=== PATIENT | female | born 1965 | race American Indian/Alaskan Native ===

== ENCOUNTER 2018-08-22 08:35 | Day surgery (SDC) | payer OTHER ==
--- NOTE | 2018-08-22 08:48 | PDOC ---
History of Present Illness - General Chief Complaint: Revisit,Radiology Variance Stated Complaint: ABSCESS Time Seen by Provider: 08/22/18 08:47 History Source: Patient Exam Limitations: No Limitations - History of Present Illness Initial Comments: 08/22/18 09:08 53 year old female with history of perianal abscesses sent to ED by Dr. Mandujano for perirectal abscess since 08/19. She stated she finished 7 days of augmentin and steroids 08/19/18 for a cough. She admitted to subjective fever last week, but no fever in the last couple of days. She denied abdominal pain, vomiting, chest pain, shortness of breath, lightheadedness. Past History - Past Medical History Allergies/Adverse Reactions: Allergies Allergy/AdvReac Type Severity Reaction Status Date / Time morphine Allergy Verified 08/22/18 08:37 Home Medications: Ambulatory Orders Levofloxacin [Levaquin] 500 mg PO DAILY 10 Days #10 tablet 08/22/18 Tramadol HCl 50 mg PO BID 5 Days #10 tablet MDD 2 08/22/18 COPD: No - Immunization History Immunization Up to Date: Yes - Suicide/Smoking/Psychosocial Hx Smoking History: Never smoked Hx Alcohol Use: No Review of Systems - Review of Systems Able to Perform ROS?: Yes Comments:: 08/22/18 09:16 General: denied fever, chills, night sweats, generalized weakness. HEENT: denied sore throat, rhinorrhea, ear pain. Heart: denied chest pain, palpitations, syncope, lower extremity swelling, diaphoresis. Respiratory: denied shortness of breath, cough, sputum production, hemoptysis. Abdomen: denied abdominal pain, nausea, vomiting, diarrhea, constipation, blood in stool. : denied dysuria, increased urinary frequency, hematuria, urinary incontinence , flank pain. Back: denied back pain. Musculoskeletal: denied joint pain, muscle pain, joint swelling. Neurological: denied headache, dizziness, numbness, tingling, weakness. Skin: admitted to abscess. *Physical Exam - Vital Signs Last Vital Signs Temp Pulse Resp BP Pulse Ox 97.9 F 69 18 146/70 98 08/22/18 08:37 08/22/18 08:37 08/22/18 08:37 08/22/18 08:37 08/22/18 08:37 - Physical Exam Comments: 08/22/18 09:17 Constitutional: Well-nourished, Well-developed, appearing stated age. HEENT: head is normocephalic, atraumatic. EOMI. PERRLA. Neck: supple. Full ROM. Heart: regular rhythm. no murmurs, rubs or gallops. Lungs: clear to auscultation bilaterally. no crackles, rhonchi or wheezing. no stridor. Abdomen: soft, nontender. normal bowel sounds. no rebound, guarding, masses. Extremities: Peripheral pulses intact. No lower extremity edema. Neurological: CN 2-12 grossly intact. Moves all four extremities. Psych: awake, alert, oriented x3. Follows commands. Answers questions appropriately. Skin: 2x2 cm area of induration, no erythema, no cellulitis, no flucutance to left buttocks. Moderate Sedation - Procedure Monitoring Vital Signs: Procedure Monitoring Vital Signs Temperature 97.9 F 08/22/18 08:37 Pulse Rate 69 08/22/18 08:37 Respiratory Rate 18 08/22/18 08:37 Blood Pressure 146/70 08/22/18 08:37 O2 Sat by Pulse Oximetry (%) 98 08/22/18 08:37 ED Treatment Course - LABORATORY CBC & Chemistry Diagram: 08/22/18 09:20 08/22/18 09:20 Medical Decision Making - Medical Decision Making 08/22/18 09:18 53 year old female with PMH perianal abscess presented to ED for perianal abscess. Initial Vital Signs Temp Pulse Resp BP Pulse Ox 97.9 F 69 18 146/70 98 08/22/18 08:37 08/22/18 08:37 08/22/18 08:37 08/22/18 08:37 08/22/18 08:37 Afebrile. No tachycardia. No tachypnea. Mild hypertension. No hypoxia on room air. Pending labs, CXR, EKG. Bedside US showed 1.36x0.76 cm hypodense area consistent with abscess. 08/22/18 10:43 CBC WBC 11.3 K/mm3 (4.0-10.0) H 08/22/18 09:20 RBC 4.87 M/mm3 (3.60-5.2) 08/22/18 09:20 Hgb 13.6 GM/dL (10.7-15.3) 08/22/18 09:20 Hct 41.9 % (32.4-45.2) D 08/22/18 09:20 MCV 86.1 fl (80-96) 08/22/18 09:20 MCH 27.8 pg (25.7-33.7) 08/22/18 09:20 MCHC 32.3 g/dl (32.0-36.0) 08/22/18 09:20 RDW 13.1 % (11.6-15.6) 08/22/18 09:20 Plt Count 343 K/MM3 (134-434) 08/22/18 09:20 MPV 7.9 fl (7.5-11.1) 08/22/18 09:20 Absolute Neuts (auto) 7.6 K/mm3 (1.5-8.0) 08/22/18 09:20 Neutrophils % 67.2 % (42.8-82.8) 08/22/18 09:20 Lymphocytes % 24.7 % (8-40) 08/22/18 09:20 Monocytes % 6.3 % (3.8-10.2) 08/22/18 09:20 Eosinophils % 1.3 % (0-4.5) 08/22/18 09:20 Basophils % 0.5 % (0-2.0) 08/22/18 09:20 Nucleated RBC % 0 % (0-0) 08/22/18 09:20 Mild leukocytosis. No left shift. No anemia. CMP Sodium 139 mmol/L (136-145) 08/22/18 09:20 Potassium 3.9 mmol/L (3.5-5.1) 08/22/18 09:20 Chloride 103 mmol/L (98-107) 08/22/18 09:20 Carbon Dioxide 26 mmol/L (21-32) 08/22/18 09:20 Anion Gap 10 MMOL/L (8-16) 08/22/18 09:20 BUN 12 mg/dL (7-18) 08/22/18 09:20 Creatinine 0.7 mg/dL (0.55-1.3) 08/22/18 09:20 Creat Clearance w eGFR > 60 (>60) 08/22/18 09:20 Random Glucose 98 mg/dL (74-106) 08/22/18 09:20 Lactic Acid 1.3 mmol/L (0.4-2.0) 08/22/18 09:20 Calcium 8.3 mg/dL (8.5-10.1) L 08/22/18 09:20 Total Bilirubin 0.8 mg/dL (0.2-1) 08/22/18 09:20 AST 18 U/L (15-37) 08/22/18 09:20 ALT 56 U/L (13-61) 08/22/18 09:20 Alkaline Phosphatase 90 U/L (45-117) 08/22/18 09:20 Total Protein 7.6 g/dl (6.4-8.2) 08/22/18 09:20 Albumin 3.6 g/dl (3.4-5.0) 08/22/18 09:20 Beta HCG, Quant < 1.0 mIU/ml 08/22/18 09:20 No electrolyte abnormalities. No JEIMY. No lactic acidosis. No transaminitis. Serum testing negative. INR, PTT INR 0.97 (0.83-1.09) 08/22/18 09:20 CXR: no acute pathology. EKG: rate 63, regular rhythm, normal intervals, normal axis, no acute ST changes. Pt to be admitted for abscess. Vancomycin and Unasyn ordered. 08/22/18 14:03 CT pelvis with IV contrast report: 1.8x1.0x1.4cm left perianal abscess. fibroid uterus. *DC/Admit/Observation/Transfer Diagnosis at time of Disposition: Abscess - Discharge Dispostion Condition at time of disposition: Stable Decision to Admit order: Yes - Prescriptions - Referrals - Patient Instructions - Post Discharge Activity
[2018-08-22 09:34] LABS: BASO % 0.5 % (0-2.0); EOS % 1.3 % (0-4.5); HEMATOCRIT 41.9 % (32.4-45.2); HEMOGLOBIN 13.6 GM/dL (10.7-15.3); LYMPH % 24.7 % (8-40); MCH 27.8 pg (25.7-33.7); MCHC 32.3 g/dl (32.0-36.0); MEAN CELL VOLUME 86.1 fl (80-96); MEAN PLT VOLUME 7.9 fl (7.5-11.1); MONO % 6.3 % (3.8-10.2); NEUT % 67.2 % (42.8-82.8); PLATELET COUNT 343 K/MM3 (134-434); RBC 4.87 M/mm3 (3.60-5.2); RDW 13.1 % (11.6-15.6); WHITE BLOOD COUNT 11.3 K/mm3 (4.0-10.0)
[2018-08-22 09:51] LABS: INR 0.97 (0.83-1.09); PROTHROMBIN TIME (PATIENT) 11.4 SEC (9.7-13.0)
[2018-08-22 09:53] LABS: ACTIVATED PTT 30.2 SECONDS (25.2-36.5)
[2018-08-22 10:14] LABS: ALBUMIN 3.6 g/dl (3.4-5.0); ALK PHOS 90 U/L (45-117); ANION GAP 10 MMOL/L (8-16); BILIRUBIN,TOTAL 0.8 mg/dL (0.2-1); BLOOD UREA NITROGEN 12 mg/dL (7-18); CALCIUM 8.3 mg/dL (8.5-10.1); CHLORIDE 103 mmol/L (98-107); CO2 26 mmol/L (21-32); CREATININE 0.7 mg/dL (0.55-1.3); GLUCOSE,RANDOM 98 mg/dL (74-106); POTASSIUM 3.9 mmol/L (3.5-5.1); SGOT/AST 18 U/L (15-37); SGPT/ALT 56 U/L (13-61); SODIUM 139 mmol/L (136-145); TOT PROT 7.6 g/dl (6.4-8.2)
--- NOTE | 2018-08-22 10:46 | PDOC ---
Attending Attestation - Resident Resident Name: Cielo Hutchinson - ED Attending Attestation I have performed the following: I have examined & evaluated the patient, The case was reviewed & discussed with the resident, I agree w/resident's findings & plan - HPI HPI: 08/22/18 10:45 53-year-old female sent by Dr. Mandujano for further management of left perianal abscess. No fevers or chills. - Physicial Exam PE: 08/22/18 10:45 Afebrile and hemodynamically stable Deep tissue abscess palpable along the left gluteal cleft, no active drainage or bleeding - Medical Decision Making 08/22/18 10:46 53-year-old female sent for operative drainage of perianal abscess, no evidence of seizures or sepsis. Labs CT of the pelvis Dr. Mandujano consulted, admitted to Dr. Mckeon Heart Score/ECG Review #1 General ECG Interpretation: Sinus Rhythm, Normal Rate, Normal Intervals, No acute ischemic changes
[2018-08-22] MEDS ORDERED: VANCOMYCIN 1,000 MG in DEXTROSE 5%-WATER - 250 ML IVPB ONE (10:50)
[2018-08-22] MEDS ORDERED: AMPICILLIN NA/SULBACTAM NA 3 GM in SODIUM CHLORIDE 100 ML IVPB ONE (10:53)
[2018-08-22] MEDS ORDERED: LIDOCAINE HCL 2% (50ML VIAL) SQ ONE (13:12)
--- NOTE | 2018-08-22 13:12 | HP ---
Satellite [facility] - Chief Complaint History Source: Patient Limitations to Obtaining History: No Limitations - Past Medical History Allergies/Adverse Reactions: Allergies Allergy/AdvReac Type Severity Reaction Status Date / Time morphine Allergy Verified 08/22/18 08:37 Heme/Onc: Yes: Anemia Additional Medical History: S/P excision of pilonidal cyst. - Current Medications Current Medications: Home Medications Medication Instructions Recorded NK [No Known Home Medication] 08/31/16 Satellite Physical Exam - Physical Examination Vital Signs: Vital Signs Period Temp Pulse Resp BP Sys/Vivas Pulse Ox Last 24 Hr 97.9 F 69 18-18 146/70 98-100 General Appearance: Well Nourished ENT: Clear Heart: Regular rate & rhythm Breasts: Soft Abdomen: Soft, Other (Tender in left side of anus, with some redness. CT scan reviewed with radiologist , small less than 2 cm superficial abscess in left perianal area.) Satellite Impression/Plan - Impression/Plan Impression: Small , less than 2 cm. perianal abscess, 10 days old, she has been on antibiotics. Plan : Inciaion and drainage of perianal abscess. Patient is informed , consent obtained, procedure of aspiration with lidocaine infiltartion explained. Date to be Performed: 08/22/18
[2018-08-22] MEDS ORDERED: LIDOCAINE HCL 1%, 10 MG/ML (20ML VIAL) ONE (13:20)
--- NOTE | 2018-08-22 13:44 | PROC ---
Procedure Note Procedure: Aspiration of perianal abscess, on left side. Procedure description , 53 year old woman , who has had perirectal pain for 2 weeks, and has been on augmentin for 10 days. She had focal pain on the left perianal area of the skin , with some redness. a Ct scan done this a.m. showed a small , less renae 2 cm, perianal abscess, under the skin. Patient was informed, consent was obtained , for aspiration of the abscess, under local anesthesia. The perianal area was cleansed with betadine. 5ml of 1% lidocaine was injected around the area of induration and exquiste tenderness. With a no. 18 gauge needle , aspiration of less than 2 ml of pus was aspirated. Pus was sent for culture and antibiotic sensitivity. Shw will be sent home with prescription for levaquine, and followed in my office. Tolerated the procedure well.
[2018-08-22] MEDS ORDERED: LIDOCAINE HCL 2% (20ML MULTI-DOSE VIAL) NR ONE (13:45)
[2018-08-22 14:14] VITALS: BP 153/84; PULSE 76; TEMP 97.8; BMI 27.6
--- NOTE | 2018-08-23 12:45 | EKG ---
Test Reason : Blood Pressure : / mmHG Vent. Rate : 063 BPM Atrial Rate : 063 BPM P-R Int : 180 ms QRS Dur : 096 ms QT Int : 456 ms P-R-T Axes : 040 038 021 degrees QTc Int : 466 ms POOR DATA QUALITY, INTERPRETATION MAY BE ADVERSELY AFFECTED NORMAL SINUS RHYTHM NORMAL ECG WHEN COMPARED WITH ECG OF 31-AUG-2016 20:16, NO SIGNIFICANT CHANGE WAS FOUND Confirmed by JAIME COKER, SEFERINO ([id number]) on 08/23/2018 12:45:24 PM Referred By: Confirmed By:SEFERINO SANDOVAL MD
== END 2018-08-22 15:44 | disposition home or self-care (01) ==
LOC: JER 08:35 → UNDOADMIN 10:49 → JASUSAT 10:49 → JERBED 10:49 → J7W 12:51 → JASUSAT 15:44
PROVIDERS: ATTEND Specialist
PROC: 0D9QXZX Drainage of Anus, External Approach, Diagnostic (ICD-10-PCS; principal; 2018-08-22)
DX: K61.0 Anal abscess (principal)
CPT/HCPCS: 36415; 71046-TC-FY; 72193-TC; 80053; 83605; 84702; 85025; 85610; 85730; 86850; 86900; 86901; 87040; 87070; 87186; 87205; 93005; 93010; 99283-25

== ENCOUNTER 2018-08-24 18:13 | Emergency (ER) | payer OTHER ==
[2018-08-24 18:58] VITALS: BP 171/71; PULSE 82; TEMP 98.2; BMI 27.6
[2018-08-24] MEDS ORDERED: LIDOCAINE HCL 1%, 10 MG/ML (20ML VIAL) ONE (19:03)
[2018-08-24] MEDS ORDERED: ACETAMINOPHEN 325 MG TABLET (FP) ONE (19:22)
[2018-08-24] MEDS ORDERED: ACETAMINOPHEN 325 MG TABLET (FP) PO ONE (19:27)
--- NOTE | 2018-08-24 19:35 | PDOC ---
History of Present Illness <Khalif Rivera - Last Filed: 08/24/18 19:31> - History of Present Illness Initial Comments: 08/24/18 19:36 The patient is a 53 year old female with a significant PMH of left perianal abscess who presents to the emergency department with worsening pain to the left perianal s/p incision and drainage two days ago. Patient was started on levaquin two days ago. Patient has follow up with Dr. Mandujano. Patient denies any fever or chills. Allergies: NKA Past surgical history: none reported. Social history: No reported alcohol, drug or cigarette use. <Marii Hurst - Last Filed: 08/24/18 19:39> - General Chief Complaint: Abscess Boil Stated Complaint: PAIN Time Seen by Provider: 08/24/18 19:26 Past History - Past Medical History COPD: No - Immunization History Immunization Up to Date: Yes - Suicide/Smoking/Psychosocial Hx Smoking History: Never smoked Have you smoked in the past 12 months: No Information on smoking cessation initiated: No Hx Alcohol Use: No Drug/Substance Use Hx: No <Khalif Rivera - Last Filed: 08/24/18 19:31> <Marii Hurst - Last Filed: 08/24/18 19:39> - Past Medical History Allergies/Adverse Reactions: Allergies Allergy/AdvReac Type Severity Reaction Status Date / Time morphine Allergy Verified 08/24/18 18:56 Home Medications: Ambulatory Orders Levofloxacin [Levaquin] 500 mg PO DAILY 10 Days #10 tablet 08/22/18 Tramadol HCl 50 mg PO BID 5 Days #10 tablet MDD 2 08/22/18 Review of Systems - Review of Systems Constitutional: No: Chills, Diaphoresis, Fever, Night Sweats ABD/GI: No: Diarrhea, Vomiting Integumentary: Yes: See HPI Neurological: No: Headache <Khalif Rivera - Last Filed: 08/24/18 19:31> - Review of Systems Able to Perform ROS?: Yes Comments:: 08/24/18 19:38 ADULT ROS GENERAL/CONSTITUTIONAL: No fever or chills. No weakness. HEAD, EYES, EARS, NOSE AND THROAT: No change in vision. No ear pain or discharge. No sore throat. CARDIOVASCULAR: No chest pain or shortness of breath. RESPIRATORY: No cough, wheezing, or hemoptysis. GASTROINTESTINAL: No nausea, vomiting, diarrhea or constipation. GENITOURINARY: No dysuria, frequency, or change in urination. MUSCULOSKELETAL: No joint or muscle swelling or pain. No neck or back pain. SKIN: (+) persistent pain to left perianal abscess s/p I&D NEUROLOGIC: No headache, vertigo, loss of consciousness, or change in strength/ sensation. ENDOCRINE: No increased thirst. No abnormal weight change. HEMATOLOGIC/LYMPHATIC: No anemia, easy bleeding, or history of blood clots. ALLERGIC/IMMUNOLOGIC: No hives or skin allergy. <Marii Hurst - Last Filed: 08/24/18 19:39> *Physical Exam - Vital Signs Last Vital Signs Temp Pulse Resp BP Pulse Ox 98.2 F 82 20 171/71 H 99 08/24/18 18:56 08/24/18 18:56 08/24/18 18:56 08/24/18 18:56 08/24/18 18:56 <Khalif Rivera - Last Filed: 08/24/18 19:31> - Vital Signs Last Vital Signs Temp Pulse Resp BP Pulse Ox 98.2 F 82 20 171/71 H 99 08/24/18 18:56 18 18:56 18 18:56 08/24/18 18:56 08/24/18 18:56 - Physical Exam Comments: 08/24/18 19:37 GENERAL: The patient is awake, alert, and fully oriented, in no acute distress. HEAD:[Normal with no signs of trauma. EYES: Pupils equal, round and reactive to light, extraocular movements intact, sclera anicteric, conjunctiva clear. EXTREMITIES: Normal range of motion, no edema. NEUROLOGICAL: Normal speech, normal gait. PSYCH: Normal mood, normal affect. SKIN: Warm, Dry, normal turgor. (+) bandage in place s/p left perianal abscess I &D by Dr. Mandujano <Marii Hurst - Last Filed: 08/24/18 19:39> Moderate Sedation - Procedure Monitoring Vital Signs: Procedure Monitoring Vital Signs Temperature 98.2 F 08/24/18 18:56 Pulse Rate 82 08/24/18 18:56 Respiratory Rate 20 08/24/18 18:56 Blood Pressure 171/71 H 08/24/18 18:56 O2 Sat by Pulse Oximetry (%) 99 08/24/18 18:56 <Khalif Rivera - Last Filed: 08/24/18 19:31> - Procedure Monitoring Vital Signs: Procedure Monitoring Vital Signs Temperature 98.2 F 08/24/18 18:56 Pulse Rate 82 08/24/18 18:56 Respiratory Rate 20 08/24/18 18:56 Blood Pressure 171/71 H 08/24/18 18:56 O2 Sat by Pulse Oximetry (%) 99 08/24/18 18:56 <Marii Hurst - Last Filed: 08/24/18 19:39> ED Treatment Course - Medications Given in the ED: ED Medications Discontinued Medications Generic Name Dose Route Start Last Admin Trade Name Freq PRN Reason Stop Dose Admin Acetaminophen 650 mg 08/24/18 19:27 08/24/18 19:27 Tylenol - PO 08/24/18 19:28 650 mg NOW ONE Administration <Khalif Rivera - Last Filed: 08/24/18 19:31> - Medications Given in the ED: ED Medications Discontinued Medications Generic Name Dose Route Start Last Admin Trade Name Freq PRN Reason Stop Dose Admin Acetaminophen 650 mg 08/24/18 19:27 08/24/18 19:27 Tylenol - PO 08/24/18 19:28 650 mg NOW ONE Administration <Guillermina Hurstsy - Last Filed: 08/24/18 19:39> Medical Decision Making - Medical Decision Making 08/24/18 19:32 53-year-old female presents again to the emergency department with persistent pain to left perianal abscess status post incision and drainage 2 days ago with general surgery, CAT scan at that time showed tiny amount of fluid which was drained, now presents with persistent pain but no systemic symptoms of fevers or chills area taking antibiotics, seen by Dr. Madnujano in the emergency department and incision again performed without any pus, plan is to discharge continuing antibiotics and follow-up in the office. Patient with postprocedural discomfort otherwise well-appearing Afebrile Bandage in place status post intervention by Dr. Mandujano Abdomen benign 53-year-old female with persistent buttock cellulitis/induration, status post incision and drainage, on antibiotics. Seen again by surgery in the emergency department, plan is to continue antibiotics, no further intervention needed at this time. No systemic symptoms to suggest bacteremia or sepsis. Patient has antibiotics at home Ibuprofen and Tylenol as needed for pain Has follow-up in the office, otherwise can return to the emergency department, understands return criteria <Khalif Rivera - Last Filed: 08/24/18 19:31> *DC/Admit/Observation/Transfer <Khalif Rivera - Last Filed: 08/24/18 19:31> - Attestations Scribe Attestion: 08/24/18 19:38 Documentation prepared by Marii Hurst, acting as diagnostic medical sonographer for Khalif Rivera MD. <Marii Hurst - Last Filed: 08/24/18 19:39> Diagnosis at time of Disposition: Abscess - Discharge Dispostion Disposition: HOME Condition at time of disposition: Stable - Referrals Referrals: Nimesh Mandujano MD [Staff Physician] - - Patient Instructions Printed Discharge Instructions: DI for Incision and Drainage of a Skin Abscess Additional Instructions: Activity as tolerated. Stay hydrated. Tylenol 1000 mg every 8 hours and/or ibuprofen 600 mg every 8 hours as needed for pain. Tramadol as previously prescribed as needed for severe pain. Continue your medications as previously prescribed by your physician, including the Levaquin (an antibiotic for the infection). You should follow up with Dr. Mandujano as soon as possible regarding today's emergency department visit. Return to the emergency department for any new or concerning symptoms, particularly persistent or intolerable pain, fever/chills, excessive pus or blood, expanding redness/swelling/discoloration. - Post Discharge Activity Forms/Work/School Notes: Back to Work
--- NOTE | 2018-08-24 19:36 | PROC ---
Procedure Note Procedure: Incision and drainage of perianal abscess. Under sterile aseptic condition , the area baround the anus was cleansed with betadine. 1% lidocaine was injected intothe skin over the area of maximum tenderness, and induration. Lidocaine was also injected deep into the perianal skin on either side of the area of induration. With a no. 15 blade a crisscross incision was made over the area of induration. A clamp was introduced , and the area opened. No pus was seen , there was no foul smell. The wound was packed loosely with 2 inch gauze. A dressing was placed. Patient was informed. Continue antibiotics, sitz bath, Will follow.
--- NOTE | 2018-08-24 19:42 | CONSULT ---
Consult Consult Specialty:: Surgery - History of Present Illness Chief Complaint: Perianal abscess. - History Source History Provided By: Patient Limitations to Obtaining History: No Limitations - Past Medical History Additional Medical History: S/P excision of pilonidal cyst. - Past Surgical History Past Surgical History: Yes: (x 3) - Alcohol/Substance Use Hx Alcohol Use: No History of Substance Use: reports: None - Smoking History Smoking history: Never smoked Have you smoked in the past 12 months: No - Social History ADL: Independent Occupation: QUALITY ASSISTANT Home Medications - Allergies Allergies/Adverse Reactions: Allergies Allergy/AdvReac Type Severity Reaction Status Date / Time morphine Allergy Verified 08/24/18 18:56 - Home Medications Home Medications: Ambulatory Orders Levofloxacin [Levaquin] 500 mg PO DAILY 10 Days #10 tablet 08/22/18 Tramadol HCl 50 mg PO BID 5 Days #10 tablet MDD 2 08/22/18 Physical Exam Vital Signs: Vital Signs Temperature 98.2 F 08/24/18 18:56 Pulse Rate 82 08/24/18 18:56 Respiratory Rate 20 08/24/18 18:56 Blood Pressure 171/71 H 08/24/18 18:56 O2 Sat by Pulse Oximetry (%) 99 08/24/18 18:56 ...Rectal Exam: Yes: Other (Induration on the nskin on the left perianal / buttock area, suggestive of infection. S/P aspiratoion of pus 2 days ago.) Assessment/Plan Perianal abscess, on the left side, s/p aspiration . Still c/o persistent pain . R.o residual abscess, undrained. patient is informed and advised incision and drainage. she has agreed , Procedure done. Continue antibiotics, sitzbath , pain medication. Follow up.
== END 2018-08-24 19:40 | disposition home or self-care (01) ==
LOC: JER 18:13
PROC: 0D9Q0ZZ Drainage of Anus, Open Approach (ICD-10-PCS; principal; 2018-08-24)
DX: K61.0 Anal abscess (principal)
CPT/HCPCS: 99281-25

== ENCOUNTER 2019-02-07 10:50 | Emergency (ER) | payer OTHER ==
[2019-02-07 11:02] VITALS: BP 139/77; PULSE 75; TEMP 98.5; BMI 27.1
--- NOTE | 2019-02-07 11:02 | PDOC ---
Rapid Medical Evaluation Chief Complaint: Back Pain Time Seen by Provider: 02/07/19 10:57 Medical Evaluation: Allergies Allergy/AdvReac Type Severity Reaction Status Date / Time morphine Allergy Verified 08/24/18 18:56 02/07/19 10:58 I have performed a brief in-person evaluation of this patient. The patient presents with a chief complaint of: L flank pain x 3 days, pinching pain, radiating to mid back, denies trauma/injury - pt states she is seen by Dr. 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
[2019-02-07 12:01] LABS: BASO % 0.4 % (0-2.0); EOS % 1.1 % (0-4.5); HEMOGLOBIN 12.7 GM/dL (10.7-15.3); LYMPH % 28.5 % (8-40); MCH 28.1 pg (25.7-33.7); MCHC 32.6 g/dl (32.0-36.0); MEAN CELL VOLUME 86.2 fl (80-96); MEAN PLT VOLUME 8.4 fl (7.5-11.1); MONO % 7.3 % (3.8-10.2); NEUT % 62.7 % (42.8-82.8); PLATELET COUNT 315 K/MM3 (134-434); RBC 4.53 M/mm3 (3.60-5.2); RDW 12.8 % (11.6-15.6); WHITE BLOOD COUNT 8.1 K/mm3 (4.0-10.0)
[2019-02-07] MEDS ORDERED: KETOROLAC TROMETHAMINE 60 MG/2 ML VIAL IM ONE (12:34)
--- NOTE | 2019-02-07 12:38 | PDOC ---
*Physical Exam - Vital Signs Last Vital Signs Temp Pulse Resp BP Pulse Ox 98.5 F 75 16 139/77 99 02/07/19 10:58 02/07/19 10:58 02/07/19 10:58 02/07/19 10:58 02/07/19 10:58 - Physical Exam Comments: 02/07/19 12:37 The patient was examined by [PATO Newberry] under my direct supervision. I personally evaluated the patient. I concur with the above findings and the plan of care. ED Treatment Course - LABORATORY CBC & Chemistry Diagram: 02/07/19 11:54 - ADDITIONAL ORDERS Additional order review: 02/07/19 11:54 RBC 4.53 MCV 86.2 MCHC 32.6 RDW 12.8 MPV 8.4 Neutrophils % 62.7 Lymphocytes % 28.5 Monocytes % 7.3 Eosinophils % 1.1 Basophils % 0.4
--- NOTE | 2019-02-07 13:00 | PDOC ---
History of Present Illness - General Chief Complaint: Back Pain Stated Complaint: LWR BACK PAIN Time Seen by Provider: 02/07/19 10:57 History Source: Patient Exam Limitations: Clinical Condition - History of Present Illness Initial Comments: 02/07/19 12:54 Patient with history of anal fistula being followed by Dr. Mandujano who present with 3 day history of left flank pain which is worse with movement. Patient reports sudden onset of left flank pain radiating to left thigh area. Patient reported taking tramadol for pain with no improvement. Patient denies united frequency, dysuria, burning with urination or hematuria. Patient denies nausea, vomiting. Denies any other symptoms Timing/Duration: other (3 days) Past History - Past Medical History Allergies/Adverse Reactions: Allergies Allergy/AdvReac Type Severity Reaction Status Date / Time morphine Allergy Verified 08/24/18 18:56 Home Medications: Ambulatory Orders Levofloxacin [Levaquin] 500 mg PO DAILY 10 Days #10 tablet 08/22/18 Tramadol HCl 50 mg PO BID 5 Days #10 tablet MDD 2 08/22/18 Ketorolac Tromethamine [Toradol -] 10 mg PO TID PRN #21 tablet 02/07/19 Methocarbamol [Robaxin -] 500 mg PO TID #21 tablet 02/07/19 COPD: No - Immunization History Immunization Up to Date: Yes - Suicide/Smoking/Psychosocial Hx Smoking History: Never smoked Have you smoked in the past 12 months: No Information on smoking cessation initiated: No Hx Alcohol Use: No Drug/Substance Use Hx: No Review of Systems - Review of Systems Able to Perform ROS?: Yes Is the patient limited Bengali proficient: No Constitutional: No: Malaise, Weakness HEENTM: No: Symptoms Reported Respiratory: No: Symptoms reported Cardiac (ROS): No: Symptoms Reported ABD/GI: No: Nausea, Vomiting : Yes: Symptoms Reported, See HPI, Flank Pain (left). No: Burning, Dysuria, Discharge, Frequency, Urgency Musculoskeletal: Yes: See HPI, Muscle Pain (left flank pain) All Other Systems: Reviewed and Negative *Physical Exam - Vital Signs Last Vital Signs Temp Pulse Resp BP Pulse Ox 98.5 F 75 16 139/77 99 02/07/19 10:58 02/07/19 10:58 02/07/19 10:58 02/07/19 10:58 02/07/19 10:58 - Physical Exam Comments: 02/07/19 12:58 GENERAL: Well developed, well nourished. Awake and alert. No acute distress. NECK: Supple. Full ROM. CARDIOVASCULAR: Regular rate and rhythm. No murmurs, rubs, or gallops. Distal pulses are 2+ and symmetric. PULMONARY: No evidence of respiratory distress. Lungs clear to auscultation bilaterally. No wheezing, rales or rhonchi. ABDOMINAL: Soft. moderate TTP over left flank area. Non-distended. No rebound or guarding. No organomegaly. Normoactive bowel sounds. MUSCULOSKELETAL Normal range of motion at all joints. SKIN: Warm and dry. Normal capillary refill. No rashes. No jaundice. NEUROLOGICAL: Alert, awake, appropriate. Gait is normal without ataxia. PSYCHIATRIC: Cooperative. Good eye contact. Appropriate mood General Appearance: Yes: Nourished, Appropriately Dressed, Mild Distress ED Treatment Course - LABORATORY CBC & Chemistry Diagram: 02/07/19 11:54 - ADDITIONAL ORDERS Additional order review: 02/07/19 11:54 RBC 4.53 MCV 86.2 MCHC 32.6 RDW 12.8 MPV 8.4 Neutrophils % 62.7 Lymphocytes % 28.5 Monocytes % 7.3 Eosinophils % 1.1 Basophils % 0.4 Medical Decision Making - Medical Decision Making 02/07/19 12:56 Patient with history of anal fistula being followed by Dr. Mandujano who present with 3 day history of left flank pain which is worse with movement. Patient reports sudden onset of left flank pain radiating to left thigh area. Patient reported taking tramadol for pain with no improvement. Patient denies united frequency, dysuria, burning with urination or hematuria. Patient denies nausea, vomiting. Denies any other symptoms Exam significant for moderate tenderness to left flank area which is worse with external rotation of the hip to the right. Negative CVA tenderness bilateral. Otherwise normal exam. Symptoms likely muscle strain versus kidney stone versus UTI. UA, urine culture and urine hCG lab ordered. Toradol 60 mg IM ordered for pain. Spiral CT to be ordered after negative test to rule out kidney stone. Reassess after imaging labs 02/07/19 15:43 CBC ,CMP labs wnl. UA with no significant findings. spiral CT with no acute findings. Patient symptoms likely muscle strain and stable for discharge on PO Toradol and robaxin prn for pain with orthopedics follow-up prn 02/07/19 15:53 *DC/Admit/Observation/Transfer Diagnosis at time of Disposition: Lumbago Qualifiers: Chronicity: acute Back pain laterality: left Sciatica presence: without sciatica Qualified Code(s): M54.5 - Low back pain Strain of back Qualifiers: Encounter type: initial encounter Qualified Code(s): S39.012A - Strain of muscle, fascia and tendon of lower back, initial encounter - Discharge Dispostion Disposition: HOME Condition at time of disposition: Stable Decision to Admit order: No - Prescriptions Prescriptions: Ketorolac Tromethamine [Toradol -] 10 mg PO TID PRN #21 tablet PRN Reason: Back Pain Methocarbamol [Robaxin -] 500 mg PO TID #21 tablet - Referrals Referrals: Brandon Perez DO [Staff Physician] - - Patient Instructions Printed Discharge Instructions: DI for Low Back Pain Additional Instructions: Your labs and CAT scan was normal. Your symptoms is likely from muscle strain. Take prescribed medication as needed for pain. Apply heat therapy as needed for back pain. Follow-up with referred orthopedics if no improvement in 3 days - Post Discharge Activity Forms/Work/School Notes: Back to Work
[2019-02-07 13:14] LABS: PH,URINE 6.5 (5.0-8.0); URINE APPEARANCE CLEAR; URINE BILIRUBIN NEGATIVE (NEGATIVE); URINE COLOR YELLOW; URINE GLUCOSE (UA) NEGATIVE (NEGATIVE); URINE KETONE NEGATIVE (NEGATIVE); URINE LEUK ESTERASE NEGATIVE (NEGATIVE); URINE NITRITE NEGATIVE (NEGATIVE); URINE PROTEIN NEGATIVE (NEGATIVE); URINE UROBILINOGEN 0.2 mg/dL (0.2-1.0)
[2019-02-07] MEDS ORDERED: KETOROLAC TROMETHAMINE 60 MG/2 ML VIAL ONE (13:15)
== END 2019-02-07 15:54 | disposition home or self-care (01) ==
LOC: JER 10:50
PROC: 3E0233Z Introduction of Anti-inflammatory into Muscle, Percutaneous Approach (ICD-10-PCS; principal; 2019-02-07)
DX: M54.5 Low back pain (principal); S39.012A Strain of muscle, fascia and tendon of lower back, initial encounter
CPT/HCPCS: 36415; 74176-TC; 81003; 84703; 85025; 87086; 99282-25

== ENCOUNTER 2020-08-06 05:36 | Day surgery (SDC) | payer OTHER ==
[2020-08-04 16:10] VITALS: BMI 29.3
[2020-08-06 09:48] VITALS: TEMP 97.3
[2020-08-06 11:25] VITALS: BP 123/67; PULSE 63
== END 2020-08-06 11:13 | disposition home or self-care (01) ==
LOC: JASU-ENDO 05:36
PROVIDERS: ATTEND Internal Medicine Gastroenterology
PROC: 0DB98ZX Excision of Duodenum, Via Natural or Artificial Opening Endoscopic, Diagnostic (ICD-10-PCS; 2020-08-06)
PROC: 0DB68ZX Excision of Stomach, Via Natural or Artificial Opening Endoscopic, Diagnostic (ICD-10-PCS; 2020-08-06)
PROC: 0DB48ZX Excision of Esophagogastric Junction, Via Natural or Artificial Opening Endoscopic, Diagnostic (ICD-10-PCS; 2020-08-06)
PROC: 0DJD8ZZ Inspection of Lower Intestinal Tract, Via Natural or Artificial Opening Endoscopic (ICD-10-PCS; principal; 2020-08-06 09:00)
DX: Z12.11 Encounter for screening for malignant neoplasm of colon (principal); K64.8 Other hemorrhoids; K21.00 Gastro-esophageal reflux disease with esophagitis, without bleeding; K44.9 Diaphragmatic hernia without obstruction or gangrene; K29.50 Unspecified chronic gastritis without bleeding; K29.80 Duodenitis without bleeding
CPT/HCPCS: 43239; G0121; 81025; 88305-TC; 88342-TC

== ENCOUNTER 2022-06-17 14:03 | Emergency (ER) | payer OTHER ==
[2022-06-17 14:20] VITALS: BP 147/76; PULSE 76; RESP 18; TEMP 98; BMI 29.2
[2022-06-17] MEDS ORDERED: METHOCARBAMOL 500 MG TABLET PO ONE (15:29)
[2022-06-17] MEDS ORDERED: KETOROLAC TROMETHAMINE 30 MG/1 ML VIAL IM ONE (15:29)
[2022-06-17] MEDS ORDERED: METHOCARBAMOL 500 MG TABLET ONE (15:38)
[2022-06-17] MEDS ORDERED: KETOROLAC TROMETHAMINE 30 MG/1 ML VIAL ONE (15:38)
== END 2022-06-17 16:43 | disposition home or self-care (01) ==
LOC: JERFT 14:03 → JER 14:03 → JERFT 16:43
PROC: 3E023GC Introduction of Other Therapeutic Substance into Muscle, Percutaneous Approach (ICD-10-PCS; principal; 2022-06-17)
DX: M54.50 Low back pain, unspecified (principal); M79.605 Pain in left leg; V49.40XA Driver injured in collision with unspecified motor vehicles in traffic accident, initial encounter
CPT/HCPCS: 73552-TC-LT-FY; 99284-25

== ENCOUNTER → 2022-11-01 | Day surgery (SDC) | payer OTHER | END | disposition home or self-care (01) | LOC: FMAMMOTONE 09:22 | PROVIDERS: ATTEND Surgery | PROC: 0HBT3ZX Excision of Right Breast, Percutaneous Approach, Diagnostic (ICD-10-PCS; principal; 2022-11-01) | DX: N60.11 Diffuse cystic mastopathy of right breast (principal); N60.31 Fibrosclerosis of right breast; N60.81 Other benign mammary dysplasias of right breast; N64.89 Other specified disorders of breast; R92.8 Other abnormal and inconclusive findings on diagnostic imaging of breast | CPT/HCPCS: 19081; 76098-TC-FY; 88305-TC; A4648 ==